=== PATIENT | female | born 1965 | race Caucasian/White ===

== ENCOUNTER → 2018-02-12 | Outpatient (CLI) | payer OTHER ==
[~2018-02-12] MED LIST: BELBUCA PO; BUSPIRONE HCL5 MG PO; CYCLOBENZAPRINE10 MG PO; DIVALPROEX SOD500 MG PO; FOLIC ACID1 MG PO; GABAPENTIN300 MG PO; HYDROXYCHLOROQ200 MG PO; IBANDRONATE SO150 MG PO; LYRICA150 MG PO; MELOXICAM15 MG PO; METAXALONE800 MG PO; METHOTREXA25 MG/1 ML INJ; QUETIAPINE FUM400 MG PO; SERTRALINE HCL100 MG PO; SUMATRIPTAN20 MG; TOPAMAX25 MG; ZOLPIDEM TARTRAT5 MG PO
== END | disposition home or self-care (01) ==
LOC: RAD 05:00 → ENDO 02-17 12:35 → EDSTATUS 02-17 14:00
PROVIDERS: ATTEND Internal Medicine Gastroenterology
DX: Z12.11 Encounter for screening for malignant neoplasm of colon (principal); R12 Heartburn; R10.10 Upper abdominal pain, unspecified; Z53.09 Procedure and treatment not carried out because of other contraindication; Z01.810 Encounter for preprocedural cardiovascular examination
CPT/HCPCS: 93005

== ENCOUNTER → 2018-03-11 | Outpatient (CLI) | payer OTHER ==
--- NOTE | 2018-03-11 13:48 | Diagnostic Imaging Report ---
EXAM: BONE MINERAL DENSITY HISTORY: Bone mineralization evaluation COMPARISON: None DISCUSSION: Evaluation of the left hip and lumbar spine was performed utilizing DEXA Hologic bone densitometer. The study is technically adequate. Left hip femoral neck bone mineral density: 0.60 g/cm2, T-score is -2.3, Z-score is -1.4. Left hip total bone mineral density: 0.75 g/cm2, T-score is -1.6, Z-score is -1.0. Lumbar spine total bone mineral density: 0.89 gm/cm2, T-score is -1.3, Z-score is -0.4. 10 year fracture risk major osteoporotic fracture 5% and hip fracture 0.8%. Impression: Bone mineralization by WHO Classification is low bone mass/osteopenia, the fracture risk is increased. Signed by: Dr. Harris Sweeney M.D. on 03/11/2018 1:44 PM
--- NOTE | 2018-03-31 08:38 | Diagnostic Imaging Report ---
#[id number] - [id number] #BILATERAL DIGITAL SCREENING MAMMOGRAM WITH CAD: 03/11/2018 CLINICAL: Routine screening. No prior exams were available for comparison. Current study contains 4 films. There are scattered fibroglandular elements in both breasts. Current study was also evaluated with a Computer Aided Detection (CAD) system. There is a biopsy clip in the right breast. No significant masses, calcifications, or other findings are seen in either breast. IMPRESSION: BENIGN There is no mammographic evidence of malignancy. A 1 year screening mammogram is recommended. The patient will be notified by letter of the results. Dread paz/satish:03/31/2018 07:37:32 Line Tender: Izabela ELLIOTT)([place]), [facility] letter sent: Normal Exam Mammogram BI-RADS: 2 Benign
== END ==
LOC: MAMMO 12:03
PROVIDERS: ATTEND Internal Medicine
DX: Z12.31 Encounter for screening mammogram for malignant neoplasm of breast (principal); M89.9 Disorder of bone, unspecified
CPT/HCPCS: 77067; 77080

== ENCOUNTER → 2018-03-21 | Day surgery (SDC) | payer OTHER ==
[~2018-03-21] MED LIST changes: +FENTANYL CITRATE/PF 100MCG/2 ML INJ ONE; +HYOSCYAMINE SULFATE 0.5 MG/ML INJ ONE; +MIDAZOLAM HCL 2 MG/2 ML VIAL ONE; +PROPOFOL IV EMULSION 10 MG/ML 50 ML VIAL ONE
--- OUTSIDE RECORDS SUMMARY | 2018-03-21 09:19 | XMS REPORT ---
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 Allergies, Adverse Reactions, Alerts This patient has no known allergies or adverse reactions. Medications This patient has no known medications. Results Test Description Test Time Test Comments Text Results Atomic Results Result Comments BONE DXA DUAL ENERGY 2018-03-11 13:42:00 [place] [address] Patient Name: OSEI CERNA MR #: [id number] : 1965 Age/Sex: 53/F Req #: [id number] [facility] Physician: Ordered by: SHEELA PARSONS MD Report #: [id number] [facility] Room/Bed: Procedure: [id number] DX/BONE DXA DUAL ENERGY Exam Date: Exam Time: REPORT STATUS: Signed EXAM: BONE MINERAL DENSITY HISTORY: Bone mineralization evaluation COMPARISON: None DISCUSSION: Evaluation of the left hip and lumbar spine was performed utilizing DEXA Hologic bone densitometer. The study is technically adequate. Left hip femoral neck bone mineral density: 0.60 g/cm2, T-score is -2.3, Z-score is -1.4. Left hip total bone mineral density: 0.75 g/cm2, T-score is -1.6, Z-score is -1.0. Lumbar spine total bone mineral density: 0.89 gm/cm2, T-score is -1.3, Z-score is -0.4. 10 year fracture risk major osteoporotic fracture 5% and hip fracture 0.8%. Impression: Bone mineralization by WHO Classification is low bone mass/osteopenia, the fracture risk is increased. Signed by: Dr. Noble Baeza M.D. on 03/11/2018 1:44 PM Dictated By: NOBLE BAEZA MD 1344 Transcribed By: KATE on 03/11/18 1344 COPY TO: SHEELA PARSONS MD
[2018-03-21 19:00] VITALS: BP 122/79
--- NOTE | 2018-03-21 19:34 | Operative Report ---
DATE OF PROCEDURE: March 21, 2018 REFERRING PHYSICIAN: Dr. Sheela Parsons. PROCEDURES PERFORMED 1. Esophagogastroduodenoscopy with biopsies. 2. Pyloric channel stricture dilatation per TTS balloon dilators. 3. Colonoscopy with biopsies. INDICATIONS FOR ESOPHAGOGASTRODUODENOSCOPY: Heartburn indigestion, nausea and vomiting. INDICATIONS FOR COLONOSCOPY: Colorectal cancer screening, intermittent bouts of diarrhea and constipation. MEDICATION: Patient was done under MAC. Please see anesthesiologist's note. PROCEDURE: With the patient in the left lateral decubitus position, the flexible fiberoptic Olympus gastroscope was introduced into the esophagus under direct visualization without any difficulty. There was some patchy erythema noted in distal esophagus. The scope was then advanced with ease into the stomach and mucosa overlying the antrum and the body revealed some patchy areas of erythema and low-grade to moderate edema and biopsies were obtained and sent to stain for H. pylori. There were also operative changes compatible with gastric sleeve surgery. The pylorus was stenotic and was dilated to size 20 mm per TTS balloon dilators. It was then traversed with ease with a scope which was advanced to the 2nd portion of the duodenum. Biopsies were obtained from the 2nd portion as well as from the duodenal bulb to rule out sprue. The scope was then withdrawn back into the stomach and retroflexed, and mucosa overlying the fundus and the cardia grossly appeared to be within normal limits. There was also some postoperative changes noted. The scope was then straightened out and was subsequently withdrawn. Patient tolerated the procedure well. IMPRESSION 1. Distal esophagitis, mild. 2. Gastritis, biopsied. Biopsies sent to stain for Helicobacter pylori. 3. Status post gastric sleeve. 4. Rule out sprue. PLAN: Follow up histology. Initiate Protonix 40 mg 1 p.o. q.a.m. a.c. Patient was then turned around and after adequate lubrication of the anal canal, a flexible fiberoptic Olympus colonoscope was inserted into the rectum with ease and advanced all the way to the cecum. The prep in the right colon was suboptimal to poor with moderate amount of retained stools in the colon. The cecum could not be well visualized due to the retained fecal material. The ileocecal valve was intubated and the scope was advanced into the terminal ileum. Biopsies were obtained. The scope was then withdrawn back into the colon. It was then withdrawn slowly and whatever was visualized, the mucosa overlying the ascending colon grossly appeared to be within normal limits. The mucosa overlying the transverse also appeared to be within normal limits. There were some mild inflammatory changes noted in the left colon and the rectum and random biopsies were obtained. The scope was then retroflexed into the distal rectum and small internal hemorrhoids were noted, none of which was actively bleeding. The scope was then straightened out and was subsequently withdrawn after securing an adequate stool specimen that was sent for the appropriate stool studies. Patient tolerated the procedure well. IMPRESSION 1. Poor prep, right colon. 2. Mild patchy left-sided colitis. 3. Proctitis, mild. 4. Internal hemorrhoids, none actively bleeding. PLAN: Follow up histology. Follow up stool studies. Initiate VSL #3 one p.o. daily and Bentyl 10 mg 1 p.o. t.i.d. Patient might benefit from a repeat colonoscopy in 1 to 2 years. Job#: [id number] AKU cc:SHEELA PARSONS MD
[2018-03-22 14:46] LABS: C DIFFICILE TOXIN A&B AMP PROB NEGATIVE (NEGATIVE); WBC,FECAL (FECAL LACTOFERRIN) NEGATIVE (NEGATIVE)
--- NOTE | 2018-03-26 06:41 | Operative Report ---
DATE OF PROCEDURE: March 21, 2018 REFERRING PHYSICIAN: Dr. Sheela Parsons PROCEDURES PERFORMED 1. Esophagogastroduodenoscopy with biopsies. 2. Colonoscopy with biopsies. INDICATIONS FOR EGD: Heartburn, indigestion, nausea, and vomiting. INDICATIONS FOR COLONOSCOPY: Colorectal cancer screening and intermittent bouts of diarrhea and constipation. MEDICATION: Patient was done under MAC. Please see anesthesiologist's note. PROCEDURE: With the patient in the left lateral decubitus position, the flexible fiberoptic Olympus gastroscope was introduced into the esophagus under direct visualization without any difficulty. There was some patchy erythema noted in the distal esophagus. The scope was then advanced with ease into the stomach. The patient is apparently status post gastric sleeve. The mucosa overlying the body and the antrum revealed some patchy erythema and low-grade to moderate edema, and biopsies were obtained and sent to stain for H. pylori. The pyloric channel strictured and was dilated to size 20 mm per TTS balloon dilators. The scope was then advanced with ease to the 2nd portion of the duodenum. Biopsies were obtained from proximal 2nd portion and the duodenal bulb to rule out sprue. The scope was then withdrawn back into the stomach and retroflexed. Postoperative changes were noted, but otherwise appeared to be unremarkable. The scope was then straightened out. It was subsequently withdrawn. Patient tolerated the procedure well. IMPRESSION 1. Distal esophagitis, mild. 2. Gastritis, biopsied. Biopsies sent to stain for Helicobacter pylori. 3. Status post gastric sleeve. 4. Rule out sprue. PLAN: Follow up histology. Initiate Protonix 40 mg 1 p.o. q.a.m. a.c. Patient was then turned around. After adequate lubrication of the anal canal, a flexible fiberoptic Olympus colonoscope was inserted into the rectum with ease and advanced all the way to the cecum. There was a significant amount of retained stools in the right colon. The prep was poor in the right colon, but it was adequate in the left colon. The ileocecal valve was intubated. The scope was advanced into the terminal ileum. Biopsies were obtained. The scope was then withdrawn back into the colon. It was then withdrawn slowly. Whatever was visualized in the mucosa overlying the cecum, ascending colon and transverse colon grossly appeared to be within normal limits. There was some mild inflammatory changes noted in the left colon. Multiple random biopsies were obtained. The scope was then retroflexed into the distal rectum and small internal hemorrhoids were noted, none of which was actively. The scope was then straightened out. An adequate stool specimen was obtained and sent for the appropriate stool studies. Patient tolerated the procedure well. IMPRESSION 1. Poor prep, right colon. 2. Mild patchy left-sided colitis. 3. Proctitis, mild. 4. Internal hemorrhoids, none actively bleeding. PLAN: Follow up histology. Follow up stool studies. Initiate VSL #3 one p.o. daily and Bentyl 10 mg 1 p.o. t.i.d. Patient will need to have a followup colonoscopy in 1 to 2 years. Job#: [id number] RI cc:SHEELA PARSONS MD
== END | disposition home or self-care (01) ==
LOC: OR 09:14
PROVIDERS: ATTEND Internal Medicine Gastroenterology
DX: K59.00 Constipation, unspecified (principal); K29.70 Gastritis, unspecified, without bleeding; K31.1 Adult hypertrophic pyloric stenosis; K51.50 Left sided colitis without complications; K20.9 Esophagitis, unspecified; K21.9 Gastro-esophageal reflux disease without esophagitis; K62.89 Other specified diseases of anus and rectum; K64.8 Other hemorrhoids; Z98.84 Bariatric surgery status; M06.9 Rheumatoid arthritis, unspecified; M79.7 Fibromyalgia; I10 Essential (primary) hypertension; F31.9 Bipolar disorder, unspecified; Z88.6 Allergy status to analgesic agent; Z88.0 Allergy status to penicillin; Z88.2 Allergy status to sulfonamides; Z91.018 Allergy to other foods; Z68.29 Body mass index [BMI] 29.0-29.9, adult; Z80.0 Family history of malignant neoplasm of digestive organs
CPT/HCPCS: 43239; 43245; 45380; 83630; 83993; 87045; 87177; 87328; 87493; 93005; C1726; J1980; J2250; 43233

== ENCOUNTER → 2018-05-28 | Outpatient (CLI) | payer OTHER ==
[~2018-05-28] MED LIST changes: -FENTANYL CITRATE/PF 100MCG/2 ML INJ ONE; -HYOSCYAMINE SULFATE 0.5 MG/ML INJ ONE; +IOPAMIDOL 370 MG/ML 200 ML INFUS..BTL INJ ONE; -MIDAZOLAM HCL 2 MG/2 ML VIAL ONE; -PROPOFOL IV EMULSION 10 MG/ML 50 ML VIAL ONE; +SODIUM CHLORIDE 0.9% 50ML 50 ML ONE
--- NOTE | 2018-05-28 16:54 | Diagnostic Imaging Report ---
EXAM: CT Abdomen and Pelvis WITH contrast INDICATION: Abdominal pain, vomiting COMPARISON: None. TECHNIQUE: Abdomen and pelvis were scanned utilizing a multidetector helical scanner from the lung base to the pubic symphysis after administration of IV contrast. Coronal and sagittal reformations were obtained. Routine protocol was performed. Scan was performed when during portal venous phase. Dose modulation, iterative reconstruction, and/or weight based adjustment of the mA/kV was utilized to reduce the radiation dose to as low as reasonably achievable. IV CONTRAST: 100 mL of Isovue-370 ORAL CONTRAST: 900 cc water RADIATION DOSE: Total DLP: 404.77 mGy*cm Estimated effective dose: (DLP x 0.015 x size factor) mSv COMPLICATIONS: None FINDINGS: LINES and TUBES: None. LOWER THORAX: Lung bases clear. Heart size normal. HEPATOBILIARY: No focal hepatic lesions. There is dilatation of the common bile duct measuring 11 mm in its midportion, and mild dilatation of intrahepatic ducts. GALLBLADDER: Surgical absence of the gallbladder with cholecystectomy clips. SPLEEN: No splenomegaly. PANCREAS: There is a 6 mm cystic area in the pancreatic head. ADRENALS: No adrenal nodules KIDNEYS/URETERS: Kidneys enhance symmetrically. No hydronephrosis. No cystic or solid mass lesions. No stones. GI TRACT: No abnormal distention, wall thickening, or evidence of bowel obstruction. There are postoperative changes of the stomach. There is radiopaque material at the cecal pole, likely related to ingested material. The appendix is not conspicuously visualized, there is no inflammatory stranding in the right lower quadrant to suggest appendicitis. PELVIC ORGANS/BLADDER: Urinary bladder unremarkable. Uterus not visualized in keeping with provided history of hysterectomy. No discrete abnormal mass or fluid collection in the pelvis. LYMPH NODES: No dominant lymph node mass in the abdomen, retroperitoneum or pelvis. VESSELS: Abdominal aorta, IVC and portal system unremarkable. PERITONEUM / RETROPERITONEUM: No pneumoperitoneum or ascites. There is a 1.9 cm long tubular implant or foreign object in the superficial mesentery in the left midabdomen (axial image 40, coronal image 26). BONES: No acute or suspicious bony lesion. Grade 1 spondylolisthesis L4 on L5. SOFT TISSUES: Superficial surrounding soft tissue unremarkable. IMPRESSION: 1. Mild dilatation of the biliary tree including intrahepatic ducts. This may represent normal reservoir effect following cholecystectomy, but correlation with laboratory findings is suggested to help exclude biliary obstruction. 2. 6 mm cystic area in the pancreatic head. This may be further characterized with pancreatic protocol MRI. 3. There are postoperative changes of the stomach. Moderately large volume of retained stool in the colon is nonspecific but may be seen with constipation. 4. There is a small tubular object in the left mid abdominal mesentery of uncertain significance, possibly an implant or foreign object. Staff: Carrie Signed by: Dr. Kyaw Butler M.D. on 05/28/2018 4:51 PM
== END ==
LOC: CT 13:06
PROVIDERS: ATTEND Internal Medicine Gastroenterology
DX: R10.9 Unspecified abdominal pain (principal)
CPT/HCPCS: 74177; Q9967

== ENCOUNTER → 2019-08-11 | Outpatient (CLI) | payer OTHER ==
[~2019-08-11] MED LIST changes: -IOPAMIDOL 370 MG/ML 200 ML INFUS..BTL INJ ONE; -SODIUM CHLORIDE 0.9% 50ML 50 ML ONE
--- NOTE | 2019-08-11 13:49 | Diagnostic Imaging Report ---
TECHNIQUE: 3 views of the right foot and 3 views of left foot HISTORY: ^[id number] ^1250 ^TOE INFECTION. COMPARISON: None. 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 Possible erosive changes at the third proximal interphalangeal joints. On the left, probable posttraumatic deformity of the first metatarsal head. Overlying soft tissue swelling. Superimposed infection cannot be ruled out. Recommend MRI with contrast to exclude osteomyelitis. Signed by: Nir Angulo MD on 08/11/2019 1:46 PM
== END ==
LOC: RAD 12:32
PROVIDERS: ATTEND Internal Medicine
DX: Q72.893 Other reduction defects of lower limb, bilateral (principal)